=== PATIENT | female | born 1990 | race African-American/Black ===

== ENCOUNTER 2019-04-23 15:50 | Emergency (ER) | payer MEDICAID ==
[~2019-04-23] VITALS: Ht 172.7 cm; Wt 99.8 kg
[2019-04-23 17:21] LABS: Basophils # (auto) 0.1 uL; Eosinophils # (auto) 0.1 uL; Eosinophils % (auto) 1.2 % (0.0-7.0); Hematocrit 44.4 % (36.0-46.0); Hemoglobin 15.4 g/dL (12.2-16.2); Lymphocytes # (auto) 2.9 uL; Lymphocytes % (auto) 41.8 % (10.0-50.0); Mean Corpuscular Hemoglobin 29.3 pg (28.0-32.0); Mean Corpuscular Hgb Conc. 34.7 g/dL (32.0-36.0); Mean Corpuscular Volume 84.4 fL (80.0-100.0); Monocytes # (auto) 0.6 uL; Monocytes % (auto) 8.2 % (0.0-12.0); Neutrophils # (auto) 3.4 uL; Neutrophils % (auto) 47.8 % (37.0-80.0); Nucleated Red Blood Cells % 0.1 %; Platelet Count (auto) 213 10^3/uL (140-450); Red Blood Cells 5.25 10^6/uL (4.0-5.20); Red Cell Distribution Width 14.4 % (11.8-14.3)
[2019-04-23 17:36] LABS: Albumin 3.9 g/dL (3.4-5.0); Anion Gap 4 (5-15); Blood Urea Nitrogen 15 mg/dL (7-18); Calcium 8.6 mg/dL (8.5-10.1); Carbon Dioxide 29 mmol/L (21-32); Chloride 106 mmol/L (98-107); Glucose 83 mg/dL (74-106); Potassium 3.9 mmol/L (3.5-5.1); Sodium 139 mmol/L (136-145)
[2019-04-23 17:41] LABS: Alanine Aminotransferase 20 U/L (13-56); Alkaline Phosphatase 77 U/L (45-117); Aspartate Aminotransferase 12 U/L (15-37); Bilirubin, Total 0.3 mg/dL (0.2-1.0); GFR African American 118 mL/min; GFR Non-African American 98 mL/min; Total Protein 8.6 g/dL (6.4-8.2)
[2019-04-23 18:38] VITALS: BP 135/89
== END 2019-04-23 19:01 | disposition left against medical advice (07) ==
LOC: ER 15:50
DX: I16.0 Hypertensive urgency (principal); I10 Essential (primary) hypertension; R07.9 Chest pain, unspecified; R51 Headache
CPT/HCPCS: 36415; 80053; 84484; 85025; 93005

== ENCOUNTER 2019-04-24 09:34 | Emergency (ER) | payer MEDICAID ==
[~2019-04-24] VITALS: Ht 172.7 cm; Wt 99.8 kg
[2019-04-24 09:52] VITALS: BP 145/99
== END 2019-04-24 10:41 | disposition home or self-care (01) ==
LOC: ER 09:35
DX: I10 Essential (primary) hypertension (principal); R42 Dizziness and giddiness; R51 Headache
CPT/HCPCS: 93005

== ENCOUNTER 2019-08-07 07:31 | Emergency (ER) | payer SELFPAY ==
[~2019-08-07] VITALS: Ht 172.7 cm; Wt 92.1 kg
[2019-08-07 07:49] VITALS: BP 134/99
== END 2019-08-07 08:37 | disposition home or self-care (01) ==
LOC: ER 07:31
DX: I10 Essential (primary) hypertension (principal); Z76.0 Encounter for issue of repeat prescription

== ENCOUNTER 2019-08-09 08:02 | Emergency (ER) | payer MEDICAID ==
[~2019-08-09] VITALS: Ht 172.7 cm; Wt 92.1 kg
[2019-08-09 08:13] VITALS: BP 120/70
== END 2019-08-09 09:08 | disposition home or self-care (01) ==
LOC: ER 08:02
DX: J03.90 Acute tonsillitis, unspecified (principal); I10 Essential (primary) hypertension

== ENCOUNTER 2020-01-05 06:54 | Emergency (ER) | payer MEDICAID ==
[~2020-01-05] VITALS: Ht 172.7 cm; Wt 106.0 kg
[2020-01-05 07:25] VITALS: BP 142/97
== END 2020-01-05 08:30 | disposition home or self-care (01) ==
LOC: ER 06:54
DX: S16.1XXA Strain of muscle, fascia and tendon at neck level, initial encounter (principal); S00.83XA Contusion of other part of head, initial encounter; I10 Essential (primary) hypertension; Y04.2XXA Assault by strike against or bumped into by another person, initial encounter; Y93.89 Activity, other specified; Y92.89 Other specified places as the place of occurrence of the external cause; Y99.8 Other external cause status
CPT/HCPCS: 70450; 72040

== ENCOUNTER → 2020-02-04 | Emergency (ER) | payer MEDICAID ==
[~2020-02-04] VITALS: Ht 172.7 cm; Wt 94.3 kg
[~2020-02-04] MED LIST: KETOROLAC TROMETH 60MG/2ML VIAL IM ONE
[2020-02-04 08:01] VITALS: BP 133/83
[2020-02-04 08:15] LABS: Urine Bacteria NONE SEEN /hpf (None Seen); Urine Blood Negative /uL (Negative); Urine Mucus FEW (None Seen); Urine Specific Gravity 1.027 (1.001-1.035); Urine WBC <1 /hpf (0 - 5)
== END | disposition home or self-care (01) ==
LOC: ER 07:11
DX: S33.5XXA Sprain of ligaments of lumbar spine, initial encounter (principal); I10 Essential (primary) hypertension; X58.XXXA Exposure to other specified factors, initial encounter; Y93.89 Activity, other specified; Y92.89 Other specified places as the place of occurrence of the external cause; Y99.8 Other external cause status
CPT/HCPCS: 81001; 81025; 96372; 99283; J1885

== ENCOUNTER 2020-04-02 06:33 | Emergency (ER) | payer MEDICAID ==
[~2020-04-02] VITALS: Ht 172.7 cm; Wt 99.8 kg
[2020-04-02 07:23] VITALS: BP 135/90
[2020-04-02] MEDS ORDERED: KETOROLAC TROMETH 60MG/2ML VIAL IM ONE (07:45)
== END 2020-04-02 08:13 | disposition home or self-care (01) ==
LOC: ER 06:33
DX: G43.909 Migraine, unspecified, not intractable, without status migrainosus (principal); I10 Essential (primary) hypertension
CPT/HCPCS: 96372; 99283; J1885

== ENCOUNTER 2022-09-23 09:17 | Observation (INO) | payer MEDICAID | END 2022-09-23 12:07 | disposition home or self-care (01) | LOC: LDRP 09:17 → UNDOADMOB 09:17 → LDRP 09:36 → UNDODISOB 12:07 | PROVIDERS: ADMIT Obstetrics & Gynecology; ATTEND Obstetrics & Gynecology | DX: O36.8130 Decreased fetal movements, third trimester, not applicable or unspecified (principal); Z3A.36 36 weeks gestation of pregnancy | CPT/HCPCS: 59025; 76818; 81002; 94760; G0378 ==

== ENCOUNTER 2022-09-25 14:50 | Inpatient (IN) | payer MEDICAID | END 2022-09-25 17:05 | disposition home or self-care (01) | DRG 566 | LOC: LDRP 14:50 | PROVIDERS: ADMIT Obstetrics & Gynecology; ATTEND Obstetrics & Gynecology | DX: O36.8130 Decreased fetal movements, third trimester, not applicable or unspecified (principal); Z3A.36 36 weeks gestation of pregnancy | CPT/HCPCS: 59025; 76818; 81002; 94760; G0378 ==

== ENCOUNTER 2022-09-30 08:22 | Observation (INO) | payer MEDICAID ==
[2022-09-30] MEDS ORDERED: PREN-96 PO (08:37)
== END 2022-09-30 09:28 | disposition home or self-care (01) ==
LOC: UNDOADMOB 08:31 → LDRP 08:31 → UNDODISOB 09:28
PROVIDERS: ADMIT Obstetrics & Gynecology; ATTEND Obstetrics & Gynecology
DX: O69.81X0 Labor and delivery complicated by cord around neck, without compression, not applicable or unspecified (principal); O62.9 Abnormality of forces of labor, unspecified; Z3A.37 37 weeks gestation of pregnancy
CPT/HCPCS: 59025; 81002; G0378

== ENCOUNTER 2022-10-06 09:09 | Observation (INO) | payer MEDICAID ==
[~2022-10-06] VITALS: Ht 172.7 cm; Wt 111.1 kg
[~2022-10-06 09:09] MED LIST changes: -KETOROLAC TROMETH 60MG/2ML VIAL IM ONE; +PREN-96 PO
[2022-10-06 09:47] LABS: Basophils # (auto) 0 10 ^3/uL (0-0.2); Basophils % (auto) 0.5 % (0.0-2.0); Eosinophils # (auto) 0 10 ^3/uL (0-0.8); Eosinophils % (auto) 0.3 % (0.0-7.0); Hemoglobin 13.8 g/dL (12.2-16.2); Lymphocytes # (auto) 1.6 10 ^3/uL (0.4-5.4); Lymphocytes % (auto) 21.1 % (10.0-50.0); Mean Corpuscular Hemoglobin 29.4 pg (28.0-32.0); Mean Corpuscular Hgb Conc. 34.5 g/dL (32.0-36.0); Mean Corpuscular Volume 85.3 fL (80.0-100.0); Monocytes # (auto) 0.4 10 ^3/uL (0-1.3); Monocytes % (auto) 5.4 % (0.0-12.0); Neutrophils # (auto) 5.5 10 ^3/uL (1.6-8.6); Neutrophils % (auto) 72.7 % (37.0-80.0); Nucleated Red Blood Cells % 0.1 %; Red Blood Cells 4.69 10^6/uL (4.0-5.20); White Blood Cell 7.6 10^3/uL (4.4-10.8)
[2022-10-06 09:48] LABS: Urine Bacteria FEW /hpf (None Seen); Urine Blood Negative /uL (Negative); Urine Specific Gravity 1.017 (1.001-1.035); Urine WBC 2 /hpf (0 - 5)
[2022-10-06 10:03] LABS: INR 0.97 (0.9-1.15); Partial Thromboplastin Time 33.9 sec (24.6-33.4)
[2022-10-06 10:32] LABS: Potassium 3.6 mmol/L (3.5-5.1)
[2022-10-06 10:35] LABS: Protein, Urine 28.4 mg/dL (0.0-11.9)
[2022-10-06 10:51] LABS: Albumin 2.7 g/dL (3.4-5.0); BUN/Creatinine Ratio 8.3 (10.0-20.0); Bilirubin, Total 0.2 mg/dL (0.2-1.0); Calcium 9.6 mg/dL (8.5-10.1); Total Protein 7.1 g/dL (6.4-8.2); Uric Acid 3.2 mg/dL (2.6-6.0)
== END 2022-10-06 11:16 | disposition home or self-care (01) ==
LOC: LDRP 09:09 → UNDOADMOB 09:09 → LDRP 09:14 → UNDODISOB 11:16
PROVIDERS: ADMIT Obstetrics & Gynecology; ATTEND Obstetrics & Gynecology
DX: O69.81X0 Labor and delivery complicated by cord around neck, without compression, not applicable or unspecified (principal); O26.893 Other specified pregnancy related conditions, third trimester; R51.9 Headache, unspecified; R42 Dizziness and giddiness; R03.0 Elevated blood-pressure reading, without diagnosis of hypertension; O62.9 Abnormality of forces of labor, unspecified; Z3A.38 38 weeks gestation of pregnancy; Z79.899 Other long term (current) drug therapy
CPT/HCPCS: 36415; 59025; 76818; 80053; 81001; 81002; 82570; 84156; 84550; 85025; 85610; 85730; 94760; G0378

== ENCOUNTER 2022-10-09 10:00 | Observation (INO) | payer MEDICAID ==
[2022-10-09 11:51] LABS: Protein, Urine 12.6 mg/dL (0.0-11.9)
[2022-10-09 12:34] LABS: Urine Bacteria FEW /hpf (None Seen); Urine Blood Negative /uL (Negative); Urine Hyaline Cast FEW /lpf (0 - 2); Urine Mucus FEW (None Seen); Urine Specific Gravity 1.026 (1.001-1.035); Urine WBC 3 /hpf (0 - 5)
== END 2022-10-09 12:47 | disposition home or self-care (01) ==
LOC: LDRP 10:00
PROVIDERS: ADMIT Obstetrics & Gynecology; ATTEND Obstetrics & Gynecology
DX: Z34.83 Encounter for supervision of other normal pregnancy, third trimester (principal); Z3A.38 38 weeks gestation of pregnancy; Z91.040 Latex allergy status
CPT/HCPCS: 59025; 76818; 81001; 81002; 82570; 84156; G0378

== ENCOUNTER 2022-10-13 22:31 | Observation (INO) | payer MEDICAID ==
[~2022-10-13] VITALS: Ht 172.7 cm; Wt 109.8 kg
[2022-10-13 23:53] LABS: Basophils # (auto) 0.1 10 ^3/uL (0-0.2); Basophils % (auto) 0.8 % (0.0-2.0); Eosinophils # (auto) 0.1 10 ^3/uL (0-0.8); Eosinophils % (auto) 0.6 % (0.0-7.0); Hematocrit 38.3 % (36.0-46.0); Hemoglobin 12.9 g/dL (12.2-16.2); Lymphocytes # (auto) 2.3 10 ^3/uL (0.4-5.4); Lymphocytes % (auto) 25.6 % (10.0-50.0); Mean Corpuscular Hemoglobin 28.8 pg (28.0-32.0); Mean Corpuscular Hgb Conc. 33.8 g/dL (32.0-36.0); Mean Corpuscular Volume 85.3 fL (80.0-100.0); Monocytes # (auto) 0.8 10 ^3/uL (0-1.3); Monocytes % (auto) 8.5 % (0.0-12.0); Neutrophils # (auto) 5.8 10 ^3/uL (1.6-8.6); Neutrophils % (auto) 64.5 % (37.0-80.0); Nucleated Red Blood Cells % 0.1 %; Red Blood Cells 4.49 10^6/uL (4.0-5.20)
[2022-10-14 00:08] LABS: Albumin 2.5 g/dL (3.4-5.0); Calcium 8.9 mg/dL (8.5-10.1); Potassium 3.6 mmol/L (3.5-5.1)
[2022-10-14 00:12] LABS: BUN/Creatinine Ratio 7.4 (10.0-20.0); Bilirubin, Total 0.2 mg/dL (0.2-1.0); Total Protein 6.7 g/dL (6.4-8.2); Uric Acid 3.2 mg/dL (2.6-6.0)
[2022-10-14 00:20] LABS: Urine Bacteria NONE SEEN /hpf (None Seen); Urine Blood Negative /uL (Negative); Urine Specific Gravity 1.002 (1.001-1.035); Urine WBC <1 /hpf (0 - 5)
[2022-10-14 00:23] LABS: Protein, Urine < 5 mg/dL (0.0-11.9)
[2022-10-14 00:34] LABS: INR 0.96 (0.9-1.15)
[2022-10-14 00:56] LABS: Creatinine, Urine 6 mg/dL (30.0-125.0)
== END 2022-10-14 01:27 | disposition home or self-care (01) ==
LOC: LDRP 22:31
PROVIDERS: ADMIT Obstetrics & Gynecology; ATTEND Obstetrics & Gynecology
DX: O99.343 Other mental disorders complicating pregnancy, third trimester (principal); F41.9 Anxiety disorder, unspecified; O26.893 Other specified pregnancy related conditions, third trimester; R06.02 Shortness of breath; O62.9 Abnormality of forces of labor, unspecified; Z3A.38 38 weeks gestation of pregnancy
CPT/HCPCS: 36415; 59025; 76818; 80053; 81001; 81002; 82570; 84156; 84550; 85025; 85384; 85610; 85730; 94760; G0378

== ENCOUNTER 2022-10-15 12:10 | Inpatient (IN) | payer MEDICAID ==
[~2022-10-15] VITALS: Ht 172.7 cm; Wt 112.5 kg
[2022-10-15] MEDS ORDERED: PROMETHAZINE HCL 25 MG/ML 1ML IV PRN (12:45)
[2022-10-15] MEDS ORDERED: LIDOCAINE 2%HCL (LOCAL ANESTH.) INJ 20ML MDV IJ PRN (12:45)
[2022-10-15] MEDS ORDERED: LACTATED RINGER'S 1,000 ML IV SCH (12:45)
[2022-10-15] MEDS ORDERED: PHISODERM TOP SOLN 240ML BTL TOP PRN (12:45)
[2022-10-15] MEDS ORDERED: LACT. RINGERS/OXYTOCIN 20UNITS 500 ML IV ONE ×2 (12:45→13:15)
[2022-10-15] MEDS ORDERED: BUTORPHANOL TARTRATE 2 MG/1 ML VIAL IV PRN ×2 (12:45)
[2022-10-15 12:57] LABS: Basophils # (auto) 0.1 10 ^3/uL (0-0.2); Basophils % (auto) 0.6 % (0.0-2.0); Eosinophils # (auto) 0 10 ^3/uL (0-0.8); Eosinophils % (auto) 0.4 % (0.0-7.0); Hematocrit 43.6 % (36.0-46.0); Hemoglobin 14.5 g/dL (12.2-16.2); Lymphocytes # (auto) 1.9 10 ^3/uL (0.4-5.4); Lymphocytes % (auto) 22.4 % (10.0-50.0); Mean Corpuscular Hemoglobin 28.4 pg (28.0-32.0); Mean Corpuscular Hgb Conc. 33.2 g/dL (32.0-36.0); Mean Corpuscular Volume 85.5 fL (80.0-100.0); Monocytes # (auto) 0.6 10 ^3/uL (0-1.3); Monocytes % (auto) 6.6 % (0.0-12.0); Nucleated Red Blood Cells % 0.1 %; Red Cell Distribution Width 15.2 % (11.8-14.3); White Blood Cell 8.6 10^3/uL (4.4-10.8)
[2022-10-15 13:13] LABS: INR 0.97 (0.9-1.15); Partial Thromboplastin Time 34.7 sec (24.6-33.4)
[2022-10-15 13:18] LABS: Albumin 2.9 g/dL (3.4-5.0); Alcohol, Urine < 3.0 mg/dL (0-10); Amphetamine Screen, Urine NEGATIVE (NEGATIVE); Barbiturate Scree,Urine NEGATIVE (NEGATIVE); Benzodiazephine Screen, Urine NEGATIVE (NEGATIVE); Calcium 9.6 mg/dL (8.5-10.1); Cannabinoid Screen, Urine NEGATIVE (NEGATIVE); Cocaine Screen, Urine NEGATIVE (NEGATIVE); Opiate Scree,Urine NEGATIVE (NEGATIVE); Phencyclidine Screen, Urine NEGATIVE (NEGATIVE)
[2022-10-15 13:22] LABS: Total Protein 7.9 g/dL (6.4-8.2); Uric Acid 3.4 mg/dL (2.6-6.0)
[2022-10-15 13:26] LABS: Urine Bacteria FEW /hpf (None Seen); Urine Blood Negative /uL (Negative); Urine Hyaline Cast FEW /lpf (0 - 2); Urine Specific Gravity 1.006 (1.001-1.035); Urine WBC 4 /hpf (0 - 5)
[2022-10-15 13:34] LABS: Protein, Urine 11.3 mg/dL (0.0-11.9)
[2022-10-15] MEDS: miSOPROStol 50 MCG per PRE-CUT 1/2 TAB PO PRN ×2 (14:06→18:41)
[2022-10-15] MEDS: DERMOPLAST 60ML BOTTLE TOP PRN (14:08)
[2022-10-15] MEDS: WITCH HAZEL-GLYCERIN PAD TOP PRN (14:09)
[2022-10-15] MEDS ORDERED: METHYLERGONOVINE MALEATE 0.2 MG/ML AMP IM PRN (19:15)
[2022-10-15] MEDS ORDERED: CARBOPROST TROMETHAMINE 250 MCG/1ML VIAL IM PRN (19:15)
[2022-10-15] MEDS ORDERED: miSOPROStol 100 mcg TAB PR PRN (19:15)
[2022-10-15] MEDS ORDERED: TRANEXAMIC ACID 1,000 MG in SODIUM CHL 0.9% 100 ML IV ONE (19:15)
[2022-10-15] MEDS ORDERED: DIPHENOXYLATE W/ATROPINE 2.5 MG TAB PO SCH (22:00)
[2022-10-16] MEDS ORDERED: ONDANSETRON ODT 4 MG TAB PO PRN (04:15)
[2022-10-16] MEDS: ACETAMINOPHEN 325 MG TAB PO PRN (04:24)
[2022-10-16] MEDS: IBUPROFEN 600 MG TAB PO PRN ×3 (04:47→22:23)
[2022-10-16 07:00] VITALS: BP 134/80
[2022-10-16 07:07] LABS: RPR Non Reactive (Non Reactive)
[2022-10-16] MEDS ORDERED: miSOPROStol 100 mcg TAB PR PRN (10:30)
[2022-10-16] MEDS ORDERED: miSOPROStol 100 mcg TAB SL PRN (10:30)
[2022-10-16 11:25] VITALS: BP 139/79
[2022-10-16] MEDS: WITCH HAZEL-GLYCERIN PAD TOP PRN (13:08)
[2022-10-16 15:15] VITALS: BP 131/75
[2022-10-16 19:30] VITALS: BP 129/83
[2022-10-16] MEDS ORDERED: DOCUSATE SOD 100 MG CAP PO SCH (22:00)
[2022-10-16 23:00] VITALS: BP 140/73
[2022-10-17 03:30] VITALS: BP 107/75
[2022-10-17] MEDS: ACETAMINOPHEN 325 MG TAB PO PRN (10:22)
[2022-10-17] MEDS: WITCH HAZEL-GLYCERIN PAD TOP PRN (14:08)
[2022-10-17] MEDS: DERMOPLAST 60ML BOTTLE TOP PRN (14:08)
[2022-10-17] MEDS: IBUPROFEN 600 MG TAB PO PRN (14:08)
== END 2022-10-17 15:50 | disposition home or self-care (01) | DRG 560 ==
LOC: LDRP 12:10
PROVIDERS: ADMIT Obstetrics & Gynecology; ATTEND Obstetrics & Gynecology
PROC: 10E0XZZ Delivery of Products of Conception, External Approach (ICD-10-PCS; principal; 2022-10-15)
PROC: 3E0DXGC Introduction of Other Therapeutic Substance into Mouth and Pharynx, External Approach (ICD-10-PCS; 2022-10-15)
DX: O13.4 Gestational [pregnancy-induced] hypertension without significant proteinuria, complicating childbirth (principal); Z37.0 Single live birth; Z3A.39 39 weeks gestation of pregnancy
CPT/HCPCS: 36415; 59025; 59409; 80053; 80307; 81001; 81002; 82570; 84156; 84550; 85025; 85610; 85730; 86592; 86850; 86900; 86901; 94760; 96360; 96361; 96365; 96366; 96374; G0378; J2590

== ENCOUNTER 2023-04-09 06:53 | Emergency (ER) | payer MEDICAID ==
[~2023-04-09] VITALS: Ht 172.7 cm; Wt 108.8 kg
[2023-04-09] MEDS ORDERED: LORazepam 0.5 MG TAB PO ONE (07:45)
[2023-04-09] MEDS ORDERED: cloNIDine HCL 0.1 MG TAB PO ONE (07:45)
[2023-04-09 08:03] LABS: Basophils # (auto) 0 10 ^3/uL (0-0.2); Basophils % (auto) 0.6 % (0.0-2.0); Eosinophils # (auto) 0.1 10 ^3/uL (0-0.8); Eosinophils % (auto) 1.9 % (0.0-7.0); Hematocrit 46.5 % (36.0-46.0); Hemoglobin 15.6 g/dL (12.2-16.2); Lymphocytes # (auto) 2.3 10 ^3/uL (0.4-5.4); Lymphocytes % (auto) 41.7 % (10.0-50.0); Mean Corpuscular Hemoglobin 29.5 pg (28.0-32.0); Mean Corpuscular Hgb Conc. 33.5 g/dL (32.0-36.0); Mean Corpuscular Volume 88.1 fL (80.0-100.0); Monocytes # (auto) 0.4 10 ^3/uL (0-1.3); Monocytes % (auto) 7.6 % (0.0-12.0); Neutrophils # (auto) 2.7 10 ^3/uL (1.6-8.6); Neutrophils % (auto) 48.2 % (37.0-80.0); Nucleated Red Blood Cells % 0.1 %; Red Blood Cells 5.28 10^6/uL (4.0-5.20); Red Cell Distribution Width 15.3 % (11.8-14.3); White Blood Cell 5.5 10^3/uL (4.4-10.8)
[2023-04-09 08:13] LABS: Amphetamine Screen, Urine Neg (NEGATIVE); Barbiturate Scree,Urine Neg (NEGATIVE); Benzodiazephine Screen, Urine Neg (NEGATIVE); Cocaine Screen, Urine Neg (NEGATIVE)
[2023-04-09 08:14] LABS: Cannabinoid Screen, Urine Neg (NEGATIVE); Opiate Scree,Urine Neg (NEGATIVE); Phencyclidine Screen, Urine Neg (NEGATIVE)
[2023-04-09 08:16] LABS: Alanine Aminotransferase 23 U/L (7-40); Albumin 4.8 g/dL (3.2-4.8); Alkaline Phosphatase 68 U/L (46-116); Anion Gap 6 (5-15); Aspartate Aminotransferase 19 U/L (13-40); BUN/Creatinine Ratio 9.6 (10.0-20.0); Bilirubin, Total 0.5 mg/dL (0.2-1.0); Blood Urea Nitrogen 7 mg/dL (9-23); Calcium 9.7 mg/dL (8.5-10.1); Carbon Dioxide 26 mmol/L (20-30); Chloride 107 mmol/L (98-107); Glucose 100 mg/dL (74-106); Potassium 4.2 mmol/L (3.5-5.1); Sodium 139 mmol/L (136-145); Total Protein 7.6 g/dL (5.7-8.2)
[2023-04-09 08:28] LABS: Urine Bacteria NONE SEEN /hpf (None Seen); Urine Blood Negative /uL (Negative); Urine Clarity Clear (Clear); Urine Color Yellow (Yellow); Urine Mucus FEW (None Seen); Urine Protein, UAD TRACE (Negative); Urine Specific Gravity 1.024 (1.001-1.035); Urine Urobilinogen Normal (Negative); Urine WBC <1 /hpf (0 - 5)
[2023-04-09] MEDS ORDERED: LORA-1121 PO (11:05)
[2023-04-09 11:06] VITALS: BP 139/96; PULSE 86; RESP 15; TEMP 97.8; O2SAT 99
== END 2023-04-09 11:08 | disposition home or self-care (01) ==
LOC: ER 06:53
DX: I10 Essential (primary) hypertension (principal); F41.9 Anxiety disorder, unspecified; R07.89 Other chest pain; Z79.899 Other long term (current) drug therapy
CPT/HCPCS: 36415; 71045; 80053; 80307; 81001; 81025; 83735; 84484; 85025; 93005

== ENCOUNTER 2023-04-29 10:07 | Emergency (ER) | payer MEDICAID ==
[~2023-04-29] VITALS: Ht 172.7 cm; Wt 105.9 kg
[~2023-04-29 10:07] MED LIST changes: +LORA-1121 PO
[2023-04-29] MEDS ORDERED: LORazepam 0.5 MG TAB PO ONE (10:45)
[2023-04-29] MEDS ORDERED: cloNIDine HCL 0.1 MG TAB PO ONE ×2 (11:00→13:00)
[2023-04-29] MEDS ORDERED: ALPR0.5T PO ×3 (11:55→13:24)
[2023-04-29 12:10] VITALS: BP 177/112
[2023-04-29 12:26] VITALS: PULSE 74; RESP 16; O2SAT 98
[2023-04-29] MEDS ORDERED: LISI20TA56 PO (12:50)
== END 2023-04-29 14:55 | disposition home or self-care (01) ==
LOC: ER 10:07
DX: F41.8 Other specified anxiety disorders (principal); I16.0 Hypertensive urgency; Z79.899 Other long term (current) drug therapy